=== PATIENT | male | born 1950 | race Two or more races ===

== ENCOUNTER 2022-01-04 17:25 | Emergency (ER) | payer OTHER ==
[~2022-01-04] VITALS: Ht 170.2 cm; Wt 65.9 kg
[2022-01-04 17:40] VITALS: BP 116/71
[2022-01-04] MEDS ORDERED: ACETAMINOPHEN 325 MG TAB PO ONE (17:45)
[2022-01-04] MEDS ORDERED: TETANUS-DIPTH-ACEL PERTUSSIS 0.5ML SYR Tdap IM ONE (17:45)
[2022-01-04] MEDS ORDERED: LIDOCAINE 1% HCL (LOCAL ANESTH.) INJ 20ML MDV IJ ONE (22:30)
[2022-01-04] MEDS ORDERED: BACITRACIN TOP OINT 1 UD PKG TOP ONE (22:45)
== END 2022-01-05 00:16 | disposition home or self-care (01) ==
LOC: ER 17:25
DX: S61.412A Laceration without foreign body of left hand, initial encounter (principal); W18.00XA Striking against unspecified object with subsequent fall, initial encounter; Y93.89 Activity, other specified; Y92.89 Other specified places as the place of occurrence of the external cause; Y99.8 Other external cause status
CPT/HCPCS: 12001; 73130; 90471; 90715; 99283; J2001